=== PATIENT | female | born 1985 | race Caucasian/White ===

== ENCOUNTER 2016-06-29 16:53 | Outpatient (CLI) | payer BC ==
[2016-06-29] MEDS ORDERED: LANSOPRAZOLE 30 MG TAB.RAP.DR PO ONE (17:31)
[2016-06-29] MEDS ORDERED: RINGERS SOLUTION,LACTATED 1,000 ML IV PRN (17:32)
[2016-06-29] MEDS ORDERED: RINGERS SOLUTION,LACTATED 1,000 ML IV ONE (17:32)
[2016-06-29] MEDS ORDERED: LANSOPRAZOLE 30 MG TAB.RAP.DR ONE (17:35)
[2016-06-29 17:54] LABS: APPEARANCE,URINE SLIGHTLY-CLOUDY; BILIRUBIN,URINE NEGATIVE (NEGATIVE); GLUCOSE, URINE NEGATIVE (NEGATIVE); KETONES,URINE 80 mg/dL (NEGATIVE); LEUKOCYTE ESTERASE,URINE NEGATIVE (NEGATIVE); NITRITE,URINE NEGATIVE (NEGATIVE); PROTEIN,URINE NEGATIVE (NEGATIVE); URINE SPECIFIC GRAVITY 1.023; UROBILINOGEN,URINE NEGATIVE mg/dL (<2.0)
--- NOTE | 2016-06-29 18:01 | L&D Flow Sheet ---
LD Flowsheet Datetime Report Generated by CPN: 06/29/2016 18:00 Datetime: 06/29/2016 17:55 Vital Signs NBP Sys/Verito/Mean (mmHg): 89 (QS system process) : 50 (QS system process) : 66 (QS system process) Pulse: 75 (QS system process) Datetime: 06/29/2016 17:46 Medications Medication Comments: Bentyl 20 mg po given per order ([facility]athaly [facility], [facility]) Datetime: 06/29/2016 17:44 Patient Care IV/Blood Work: IV Started; IV Bolus Started (Nathaly [facility], [facility]) Patient Care Comments: 18g jelco placed in left wrist LR 1000 ml bolus infusing via gravity (Nathaly [facility], [facility]) Datetime: 06/29/2016 17:39 Medications Medication Comments: prevacid 30 mg odt given (Nathaly [facility], [facility]) Datetime: 06/29/2016 17:33 Patient Care Comments: pt grabbing stomach (Nathaly [facility], [facility]) Datetime: 06/29/2016 17:30 Communication Communication: Report Given to @ Dr Neilsen ([facility] [place], [facility]) Datetime: 06/29/2016 17:25 Uterine Activity Frequency (min): denies ([facility]aly [facility], [facility]) Resting Tone (Palpate): Relaxed (Annotations: abdomen palpates soft with no uterine activity palpated during assessment) ([facility], [facility]) Pain Pain Scale: 4 ([facility], [facility]) Pain Presence: Intermittent ([facility] [place], [facility]) Pain Type: Sharp ([facility], [facility]) Pain Location: Abdomen (Annotations: Middle to left upper abdominal pain) ([facility], [facility]) Pain Goal: 2 ([facility], [facility]) Pain Relief Measures: Pain Medication Given; Comfort Measures (Annotations: bentyl 20mg po given per order) ([facility], [facility]) Pain Coping: Other (Annotations: holding upper abdomen, grimacing ) ([facility], [facility]) Vaginal Exam Membrane Status: Intact ([facility], [facility]) Vaginal Bleeding: None ([facility], [facility]) Maternal Assessment Level of Consciousness: Fully Conscious ([facility], [facility]) DTR's/Clonus: DTRs 2+; No Clonus ([facility], [facility]) Headache: Denies ([facility], [facility]) Breath Sounds, Left: Clear and Equal ([facility], [facility]) Breath Sounds, Right: Clear and Equal ([facility], [facility]) Nausea/Vomiting: Present (Annotations: Gives h/o acute onset of nausea, vomiting, chills and LUQ ) ([facility], [facility]) RUQ Epigastric Pain: Denies (Annotations: c/o LUQ distention ) ([facility], [facility]) Datetime: 06/29/2016 17:24 Vital Signs NBP Sys/Verito/Mean (mmHg): 91 (QS system process) : 51 (QS system process) : 66 (QS system process) Pulse: 98 (QS system process)
[2016-06-29 18:12] LABS: URINE BARBITURATES SCREEN NEGATIVE; URINE METHADONE SCREEN NEGATIVE; URINE OPIATES LOW NEGATIVE; URINE PHENCYCLIDINE SCREEN NEGATIVE
[2016-06-29] MEDS ORDERED: DICYCLOMINE HCL 20 MG TABLET PO ONE (18:15)
[2016-06-29 18:54] LABS: ABSOLUTE MONOCYTES (AUTO) 0.4 10^3/uL (0.1-1.4); ABSOLUTE NEUT (AUTO) 7.8 10^3/uL (1.7-8.2); BASOPHILS % (AUTO) 0.2 % (0-2); EOSINOPHILS % (AUTO) 0.4 % (0-6); HEMATOCRIT 33.7 % (36.0-47.0); HEMOGLOBIN 11.3 g/dL (12.0-15.5); HGB HCT DIFFERENCE 0.2; LYMPHOCYTES % (AUTO) 11.2 % (13-45); MEAN CORPUSCULAR HEMOGLOBIN 28.9 pg (27.0-33.4); MEAN CORPUSCULAR HGB CONC 33.4 g/dL (32.0-36.0); MEAN CORPUSCULAR VOLUME 87 fl (80-97); MONOCYTES % (AUTO) 4.8 % (3-13); RED BLOOD COUNT 3.89 10^6/uL (3.72-5.28); RED CELL DISTRIBUTION WIDTH 13.9 % (11.5-14.0); SEGMENTED NEUTROPHILS % (AUTO) 83.4 % (42-78); WHITE BLOOD COUNT 9.3 10^3/uL (4.0-10.5)
[2016-06-29] MEDS ORDERED: ONDANSETRON HCL INJ/PF 4 MG/2 ML SDV ONE (19:09)
[2016-06-29 19:13] LABS: ALANINE AMINOTRANSFERASE 25 U/L (9-52); ALBUMIN 3.4 g/dL (3.5-5.0); ALKALINE PHOSPHATASE 67 U/L (38-126); AMYLASE 76 U/L (30-110); ANION GAP 7 (5-19); ASPARTATE AMINO TRANSFERASE 19 U/L (14-36); BILIRUBIN,TOTAL 0.4 mg/dL (0.2-1.3); BLOOD UREA NITROGEN 7 mg/dL (7-20); CALCIUM 9.2 mg/dL (8.4-10.2); CARBON DIOXIDE 25 mmol/L (22-30); CHLORIDE 104 mmol/L (98-107); CREATININE RESULT 0.49 mg/dL (0.52-1.25); GLUCOSE 78 mg/dL (75-110); POTASSIUM 4.6 mmol/L (3.6-5.0); SODIUM 136.1 mmol/L (137-145); TOTAL PROTEIN 6.2 g/dL (6.3-8.2)
--- NOTE | 2016-06-29 20:00 | L&D Flow Sheet ---
LD Flowsheet Datetime Report Generated by CPN: 06/29/2016 20:00 Datetime: 06/29/2016 19:14 Antiemetics/Antacids: Zofran IV (mg) @ (Annotations: 8) (Roxana Rain, RN) Datetime: 06/29/2016 19:00 Nausea/Vomiting: Present (Annotations: requests zofran for nausea. Dr Neilsen on unit order received for zofran) ([facility], [facility]) Datetime: 06/29/2016 18:28 IV/Blood Work: IV Bolus Given ml @ 1000ml; New IV Bag Hung ([facility], [facility]) Patient Care Comments: LR 1000 ml up @ 150 ml/hr ([facility], [facility]) Datetime: 06/29/2016 18:27 Provider Reviewed Strip: Yes ([facility], [facility]) Communication: RN at Bedside; Provider at Bedside ([facility], [facility]) Communication Comments: Dr Alexandraen at bedside for assessment ([facility], [facility]) Datetime: 06/29/2016 18:07 Pain Scale: 2 ([facility], [facility]) Pain Presence: Intermittent ([facility], [facility]) Pain Type: Sharp ([facility], [facility]) Pain Location: Abdomen ([facility], [facility]) Pain Assessment Comments: states a reduction in pain with interventions ([facility], [facility]) Datetime: 06/29/2016 18:00 Monitor Mode: External ([facility], [facility]) Frequency (min): none ([facility], [facility]) Resting Tone (Palpate): Relaxed ([facility], [facility])
== END 2016-06-29 20:11 | disposition home or self-care (01) ==
LOC: LC 16:53
PROVIDERS: ATTEND Specialist
PROC: 4A1HXCZ Monitoring of Products of Conception, Cardiac Rate, External Approach (ICD-10-PCS; principal; 2016-06-29)
DX: O26.892 Other specified pregnancy related conditions, second trimester (principal); R10.12 Left upper quadrant pain; R11.2 Nausea with vomiting, unspecified; Z3A.22 22 weeks gestation of pregnancy
CPT/HCPCS: 59899; 36415; 82150; 83690; 85025; 80053; 81001; 80307; J3490; J2405

== ENCOUNTER → 2016-10-06 | Outpatient (CLI) | payer BC | LOC: LC 11:11 | PROVIDERS: ATTEND Specialist | PROC: 4A1HXCZ Monitoring of Products of Conception, Cardiac Rate, External Approach (ICD-10-PCS; principal; 2016-10-06) | DX: Z36 Encounter for antenatal screening of mother (principal) | CPT/HCPCS: 59025 ==

== ENCOUNTER 2016-10-27 01:55 | Inpatient (IN) | payer BC ==
[2016-10-27 02:28] LABS: APPEARANCE,URINE CLOUDY; BILIRUBIN,URINE NEGATIVE (NEGATIVE); GLUCOSE, URINE NEGATIVE (NEGATIVE); KETONES,URINE NEGATIVE (NEGATIVE); LEUKOCYTE ESTERASE,URINE TRACE (NEGATIVE); NITRITE,URINE NEGATIVE (NEGATIVE); PROTEIN,URINE NEGATIVE (NEGATIVE); UROBILINOGEN,URINE NEGATIVE mg/dL (<2.0)
[2016-10-27] MEDS ORDERED: RINGERS SOLUTION,LACTATED 1,000 ML IV PRN (02:34)
[2016-10-27] MEDS ORDERED: NALBUPHINE HCL INJ 10 MG/1 ML AMPULE ONE (02:40)
[2016-10-27] MEDS ORDERED: NALBUPHINE HCL INJ 10 MG/1 ML AMPULE INJ ONE (02:45)
[2016-10-27 02:47] LABS: ABSOLUTE BASOPHILS # (AUTO) 0.1 10^3/uL (0.0-0.2); ABSOLUTE LYMPHOCYTES (AUTO) 2.3 10^3/uL (0.5-4.7); ABSOLUTE MONOCYTES (AUTO) 0.6 10^3/uL (0.1-1.4); ABSOLUTE NEUT (AUTO) 4.8 10^3/uL (1.7-8.2); BASOPHILS % (AUTO) 0.8 % (0-2); EOSINOPHILS % (AUTO) 0.5 % (0-6); HEMATOCRIT 40.3 % (36.0-47.0); HEMOGLOBIN 12.9 g/dL (12.0-15.5); HGB HCT DIFFERENCE -1.6; LYMPHOCYTES % (AUTO) 29.4 % (13-45); MEAN CORPUSCULAR HEMOGLOBIN 27.2 pg (27.0-33.4); MEAN CORPUSCULAR HGB CONC 32.1 g/dL (32.0-36.0); MEAN CORPUSCULAR VOLUME 85 fl (80-97); MONOCYTES % (AUTO) 7.4 % (3-13); RED BLOOD COUNT 4.75 10^6/uL (3.72-5.28); RED CELL DISTRIBUTION WIDTH 17.4 % (11.5-14.0); SEGMENTED NEUTROPHILS % (AUTO) 61.9 % (42-78); WHITE BLOOD COUNT 7.8 10^3/uL (4.0-10.5)
[2016-10-27 02:54] LABS: URINE BARBITURATES SCREEN NEGATIVE; URINE METHADONE SCREEN NEGATIVE; URINE OPIATES LOW NEGATIVE; URINE PHENCYCLIDINE SCREEN NEGATIVE
[2016-10-27] MEDS ORDERED: LIDOCAINE 1% INJ-PF (10 MG/ML) 30 ML SDV ONE (03:16)
[2016-10-27] MEDS ORDERED: MISOPROSTOL 0.2 MG TABLET ONE (03:16)
[2016-10-27] MEDS ORDERED: OXYTOCIN/NORMAL SALINE 20 UNIT/1,000 ML RTUINJ ONE (03:17)
[2016-10-27] MEDS ORDERED: PSEUDOEPHEDRINE HCL 30 MG TABLET PO PRN (03:29)
[2016-10-27] MEDS ORDERED: PROMETHAZINE HCL 25 MG SUPP.RECT PR PRN (03:29)
[2016-10-27] MEDS ORDERED: ZOLPIDEM TARTRATE 5 MG TABLET PO PRN (03:29)
[2016-10-27] MEDS ORDERED: MAGNESIUM HYDROXIDE SUSP 30 ML UDCUP PO PRN (03:29)
[2016-10-27] MEDS ORDERED: GLYCERIN/WITCH HAZEL LEAF 1 EACH MED..PAD TP PRN (03:29)
[2016-10-27] MEDS ORDERED: DIBUCAINE 1% OINTMENT 28 GM TP PRN (03:29)
[2016-10-27] MEDS ORDERED: PROMETHAZINE HCL 25 MG TABLET PO PRN (03:29)
[2016-10-27] MEDS ORDERED: OXYTOCIN/NORMAL SALINE 1,000 ML IV PRN (03:29)
[2016-10-27] MEDS ORDERED: ACETAMINOPHEN WITH CODEINE #3 TABLET PO PRN ×2 (03:29)
[2016-10-27] MEDS ORDERED: ACETAMINOPHEN 650 MG SUPP.RECT PR PRN (03:29)
[2016-10-27] MEDS ORDERED: PROMETHAZINE HCL INJ 25 MG/1 ML VIAL IV PRN (03:29)
[2016-10-27] MEDS ORDERED: BENZOCAINE/MENTHOL AEROSOL SPRAY 56 ML TOP PRN (03:29)
[2016-10-27] MEDS ORDERED: DIPH/PERTUSS(ACELL)/TETANUS VAC/PF 0.5 ML SYR (>=10YO) IM PRN (03:29)
[2016-10-27] MEDS ORDERED: NA PHOS,M-B/NA PHOS,DI-BA (ADULT) 133 ML ENEMA PR PRN (03:29)
[2016-10-27] MEDS ORDERED: DIPHENHYDRAMINE HCL 25 MG CAPSULE PO PRN (03:29)
[2016-10-27] MEDS ORDERED: MEASLES,MUMPS&RUBELLA VACC/PF 0.5 ML VIAL SUBCUT PRN (03:29)
--- NOTE | 2016-10-27 04:34 | Delivery Summary ---
Del Sum A-C Datetime Report Generated by CPN: 10/27/2016 04:34 DELIVERY PERSONNEL DELIVERY PERSONNEL: [id number] Delivery Doctor:: Corina Hampton MD Labor and Delivery Nurse:: Melissa Duenas RN Labor and Delivery Nurse:: Maggie Vera RN Furniture Mover Helper/SAND CAR WORKER: Tracy Enriquez, ST MATERNAL INFORMATION Delivery Anesthesia: None Medications After Delivery: Pitocin Drip 20 Units/1000ml NSS Estimated Blood Loss (ml): 250 Maternal Complications: Precipitous Labor (<3hrs) LABOR SUMMARY EDC: 10/26/2016 00:00 No. Babies in Womb: 1 Attempted: No Labor Anesthesia: IV Sedation LABOR INFORMATION Reason for Induction: Not Applicable Onset of Labor: 10/27/2016 01:00 Complete Dilatation: 10/27/2016 03:13 Oxytocin: N/A Group B Beta Strep: Negative Antibiotics # of Doses: 0 Steroids Given: None Reason Steroids Not Administered: Not Applicable MEMBRANES Membranes Rupture Method: Spontaneous Rupture of Membranes: 10/27/2016 01:50 Length of Rupture (hr): 1.47 Amniotic Fluid Color: Clear Amniotic Fluid Amount: Scant Amniotic Fluid Odor: Normal STAGES OF LABOR Stage 1 hr: 2 Stage 1 min: 13 Stage 2 hr: 0 Stage 2 min: 5 Stage 3 hr: 0 Stage 3 min: 5 Total Time in Labor hr: 2 Total Time in Labor min: 23 VAGINAL DELIVERY Episiotomy: None Laceration Extension: N/A Laceration Type: None Laceration Repair: Not Applicable Sponge Count Correct: N/A; Vaginal Sweep Performed Sharps Count Correct: N/A CSECTION DELIVERY Primary Indication: N/A Secondary Indication: N/A CSection Incidence: N/A Labor: N/A Elective: N/A CSection Incision: N/A BABY A INFORMATION Delivery Date/Time: 10/27/2016 03:18 Method of Delivery: Vaginal Born in Route : No : N/A Forceps: N/A Vacuum Extraction: N/A Shoulder Dystocia : No PRESENTATION/POSITION BABY A Presentation: Cephalic Cephalic Presentation: Vertex Vertex Position: Left Occipital Anterior Breech Presentation: N/A PLACENTA INFORMATION BABY A Placenta Delivery Time : 10/27/2016 03:23 Placenta Method of Delivery: Spontaneous Placenta Status: Delivered SCORES BABY A Heart Rate 1 min: >100 bpm Resp Effort 1 min: Good Cry Reflex Irritability 1 min: Cough or Sneeze or Pulls Away Muscle Tone 1 min: Active Motion Color 1 min: Body [place], Extremities Blue Resuscitation Effort 1 min: Tactile Stimulation SCORE 1 MIN: 9 Heart Rate 5 min: >100 bpm Resp Effort 5 min: Good Cry Reflex Irritability 5 min: Cough or Sneeze or Pulls Away Muscle Tone 5 min: Active Motion Color 5 min: Completely [place] Resuscitation Effort 5 min: Tactile Stimulation SCORE 5 MIN: 10 INFANT INFORMATION BABY A Gestational Age at Delivery: 40.1 Gestational Status: Full Term- 39- 40.6 Weeks Outcome : Liveborn Condition : Stable Infant Sex: Female IDENTIFICATION BABY A Infant Verification Date/Time: 10/27/2016 03:34 ID Band Number: [id number] Mother's Name Verified: Yes RN Verifying : Debra Stevenson, BUBBA Additional Verifying Personnel: RBlank RN WEIGHT/LENGTH BABY A Infant Birthweight (gm): 3145 Weight (lb): 6 Infant Weight (oz): 15 Infant Length (in): 19.75 Infant Length (cm): 50.17 CORD INFORMATION BABY A No. Cord Vessels: 3 Nuchal Cord : Around Neck x1, Tight Cord Blood Taken: Yes-For Storage (Mom's Blood type +) Infant Suction: Mouth; Nose ASSESSMENT BABY A Complications: None Physical Findings at Delivery: Within Normal Limits Infant Respirations: Appears Normal Skin to Skin: Yes Superintendent Measurement/ALS Called : No Care By: TammyLyn Vera RN Transferred To: Remains with Mother BABY B INFORMATION : N/A SIGNATURES Signature: with User ID: [email or web address]
[2016-10-27] MEDS ORDERED: IBUPROFEN 800 MG TABLET ONE (05:38)
[2016-10-27] MEDS: IBUPROFEN 800 MG TABLET PO SCH ×3 (06:04→22:17)
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
[2016-10-27] MEDS: DOCUSATE SODIUM 100 MG CAPSULE PO SCH ×2 (09:29→17:16)
[2016-10-27] MEDS: FAMOTIDINE 20 MG TABLET PO SCH ×2 (09:29→22:17)
[2016-10-27] MEDS: SENNOSIDES/DOCUSATE 8.6-50 MG 1 EACH TABLET PO SCH (09:30)
[2016-10-27] MEDS: FERROUS SULFATE 325 MG TABLET PO SCH ×2 (09:30→17:16)
[2016-10-27] MEDS: PRENATAL VITAMIN W-O CA NO5/FE FUMARATE/FA CAPSULE PO SCH (09:31)
[2016-10-28] MEDS: IBUPROFEN 800 MG TABLET PO SCH ×3 (05:22→21:03)
[2016-10-28 07:08] LABS: HEMATOCRIT 36.9 % (36.0-47.0); HEMOGLOBIN 11.9 g/dL (12.0-15.5); HGB HCT DIFFERENCE -1.2; MEAN CORPUSCULAR HEMOGLOBIN 27.6 pg (27.0-33.4); MEAN CORPUSCULAR HGB CONC 32.2 g/dL (32.0-36.0); MEAN CORPUSCULAR VOLUME 86 fl (80-97); RED BLOOD COUNT 4.31 10^6/uL (3.72-5.28); RED CELL DISTRIBUTION WIDTH 17.8 % (11.5-14.0); WHITE BLOOD COUNT 8.9 10^3/uL (4.0-10.5)
[2016-10-28] MEDS: PRENATAL VITAMIN W-O CA NO5/FE FUMARATE/FA CAPSULE PO SCH (09:23)
[2016-10-28] MEDS: DOCUSATE SODIUM 100 MG CAPSULE PO SCH ×2 (09:23→18:54)
[2016-10-28] MEDS: SENNOSIDES/DOCUSATE 8.6-50 MG 1 EACH TABLET PO SCH (09:24)
[2016-10-28] MEDS: FERROUS SULFATE 325 MG TABLET PO SCH ×2 (09:24→18:54)
[2016-10-28] MEDS: FAMOTIDINE 20 MG TABLET PO SCH ×2 (09:25→21:03)
--- NOTE | 2016-10-28 09:43 | PDOC PROGRESS REPORT ---
Subjective-OB Subjective: Post Delivery Day: 30 year old. Denies any needs at this time Doing well, hsb at BS and baby, wants to go home today, unsure if baby can go, baby is tongue tied and not sure what the POC is, voiding, diet taken well, ambulating Physical Exam (OB) Vital Signs: Temp Pulse Resp BP Pulse Ox 98.0 F 75 16 116/67 100 10/28/16 09:12 10/28/16 09:12 10/28/16 09:12 10/28/16 09:12 10/28/16 09:12 Intake & Output 10/27/16 10/28/16 10/29/16 06:59 06:59 06:59 Weight 94.15 kg - Lochia Lochia Amount: Small 10-25 ml Lochia Color: Rubra/Red - Abdomen Description: Soft, Round Hernia Present: No Fundal Description: Firm, Midline Fundal Height: u/u - u/2 Objective-Diagnostic Laboratory: 10/28/16 06:50 10/28/16 06:50 WBC 8.9 RBC 4.31 Hgb 11.9 L Hct 36.9 MCV 86 MCH 27.6 MCHC 32.2 RDW 17.8 H Plt Count 182 Assessment and Plan(PN) - Assessment and Plan (1) Vaginal delivery Is this a current diagnosis for this admission?: Yes - Time Spent with Patient Time with patient: Less than 15 minutes Medications reviewed and adjusted accordingly: Yes - Disposition Anticipated Discharge: Home Within: within 24 hours
[2016-10-28 21:44] VITALS: BP 117/71
--- NOTE | 2016-12-07 10:43 | DISCHARGE SUMMARY E ---
Discharge Summary NAME: SUMANTH BRITO : 1985 AGE: 30Y ADMITTED: 10/27/2016 DISCHARGED: 10/28/2016 REASON FOR ADMISSION: This is a 3, para 2 at term in active labor for delivery. FINAL DIAGNOSIS: This is a 3, para 2 at term in active labor for delivery. HISTORY AND PHYSICAL: See Dr. Hampton's history and physical from 10/27/2016. HOSPITAL COURSE: The patient was admitted to the Labor Unit for her term intrauterine in active labor. She goes on to deliver a spontaneous vaginal delivery of a healthy term infant. See delivery note for full details. She was transferred to the women's floor for her care. On day #1 the patient's vital signs remain stable, she remains afebrile, her hemoglobin is stable, she is meeting all goals and requesting to go home. Since she is meeting all goals she is discharged home. DISCHARGE INSTRUCTIONS: Discharge the patient home. Diet is regular. Level of activity is pelvic rest for 6 weeks. Follow-up interval is 4 weeks with [facility]. Special instructions: Patient instructed to call MD if temperature greater than 100.5, heavy vaginal bleeding or signs or symptoms of infection. Medications on discharge are Motrin. DICTATING PHYSICIAN: Nico Vallejo DO [id number] PHY#: [id number] ID: [id number] JOB#: [id number] ACCT: [id number] cc:[id number] HAMPTON M.D. Nico Vallejo D.O. >
== END 2016-10-28 21:48 | disposition home or self-care (01) | DRG 775 ==
LOC: LC 01:55 → LR 02:24 → 2S 07:23
PROVIDERS: ADMIT Obstetrics & Gynecology; ATTEND Obstetrics & Gynecology
PROC: 10E0XZZ Delivery of Products of Conception, External Approach (ICD-10-PCS; principal; 2016-10-27)
PROC: 4A1HXCZ Monitoring of Products of Conception, Cardiac Rate, External Approach (ICD-10-PCS; 2016-10-27)
DX: O62.3 Precipitate labor (principal); O69.81X0 Labor and delivery complicated by cord around neck, without compression, not applicable or unspecified; Z3A.40 40 weeks gestation of pregnancy; Z37.0 Single live birth
CPT/HCPCS: 36415; 80307; 81005; 85025; 85027; 86592; 86850; 86900; 86901; J2300; J2590; J3490